=== PATIENT | female | born 1945 | race Caucasian/White ===

== ENCOUNTER 2019-02-09 06:03 | Inpatient (IN) ==
[2019-02-03 14:53] LABS: Appearance,Urine CLEAR; Bacteria,Urine 0 /hpf (0); Bilirubin,Urine NEG (NEG); Color,Urine STRAW; Glucose,Urine (UA) NEGATIVE (NEG); Ketones,Urine NEG (NEG); Leukocyte Esterase,Urine NEG /uL (NEG); Nitrate,Urine NEG (NEG); Protein,Urine NEG (NEG); Specific Gravity,Urine 1.011 (1.000-1.035); Urine Blood 0.03 mg/dL (<0.03); Urine RBC 1 /hpf (0-1); Urine Squamous Epithelial Cell 0 /hpf (0-4); Urine WBC 1 /hpf (0-4); Urobilinogen,Urine NEG (NEG)
[2019-02-03 15:47] LABS: Blood Urea Nitrogen 17 mg/dl (8-23); Carbon Dioxide 23 mmol/L (22-30); Chloride 106 mmol/L (96-108); Glomerular Filtration Rate 63; Glucose 89 mg/dL (70-105)
[2019-02-03 15:58] LABS: INR 1.8 (0.9-1.1); Prothrombin Time 20.9 sec (11.9-14.5)
[2019-02-03 15:59] LABS: Basophils # (Auto) 0.1 K/mcL (0.0-0.3); Basophils % (Auto) 0.6 % (0.0-2.0); Eosinophils # (Auto) 0.2 K/mcL (0.0-0.7); Eosinophils % (Auto) 1.7 % (0.0-7.0); Granulocytes % (Auto) 66.8 % (38.0-78.0); Hemoglobin 12.3 g/dL (12.0-15.0); Lymphocytes # (Auto) 2.5 K/mcL (1.5-4.8); Lymphocytes % (Auto) 24.9 % (15.5-49.0); Mean Cell Volume 92.7 fL (80.0-100.0); Mean Corpuscular HGB Conc 32.3 g/dL (31.0-36.0); Mean Platelet Volume 8.9 fL (7.4-10.4); Monocytes # (Auto) 0.6 K/mcL (0.1-0.9); Platelet Count 239 K/mcL (140-440); Red Cell Distribution Width 14.6 % (11.5-14.5); WBC 10.1 K/mcL (4.5-11.0)
[~2019-02-09 06:03] MED LIST: 0.9 % SODIUM CHLORIDE 9 ML, KETOROLAC 30 MG, ROPIVACAINE HCL/PF 49.5 ML, EPINEPHrine 0.... IJ SCH; ACETAMINOPHEN 500 MG TABLET PO SCH; CELECOXIB 200 MG CAPSULE PO SCH; IPRATROPIUM/ALBUTEROL 3 ML AMPUL.NEB NEB PRN; PREGABALIN 75 MG CAPSULE PO SCH; SCOPOLAMINE 1 PATCH PATCH TOPICAL PRN; ceFAZolin 2 GM in DEXTROSE 5% IN WATER 50 ML IV SCH; oxyCODONE 10 MG TAB.ER.12H PO SCH
[2019-02-09 06:39] LABS: POC INR 1.1 (0.9-1.2)
[2019-02-09] MEDS ORDERED: GENTAMICIN SULFATE 800 MG/20 ML VIAL IR ONE (08:31)
[2019-02-09] MEDS ORDERED: PHENYLEPHRINE 10 MG/ML VIAL IV ONE (09:00)
[2019-02-09] MEDS ORDERED: FAMOTIDINE/PF 20 MG/2 ML VIAL IV ONE (09:00)
[2019-02-09] MEDS ORDERED: DEXAMETHASONE 10 MG/ML VIAL IV ONE (09:00)
[2019-02-09] MEDS ORDERED: GLYCOPYRROLATE 0.2 MG/ML VIAL IV ONE (09:00)
[2019-02-09] MEDS ORDERED: PROPOFOL 200 MG/20 ML VIAL IV ONE (09:00)
[2019-02-09] MEDS ORDERED: ONDANSETRON 4 MG/2 ML VIAL IV ONE (09:00)
[2019-02-09] MEDS ORDERED: LIDOCAINE HCL/PF 100 MG/5 ML SYRINGE IV ONE (09:00)
[2019-02-09] MEDS ORDERED: MIDAZOLAM 2 MG/2 ML VIAL IV ONE (09:00)
[2019-02-09] MEDS ORDERED: KETAMINE 100 MG/ML ML IV ONE (09:00)
[2019-02-09] MEDS ORDERED: ROPIVACAINE HCL/PF 20 ML VIAL IJ ONE (09:00)
[2019-02-09] MEDS ORDERED: TRANEXAMIC ACID 1,000 MG/10 ML VIAL IV ONE (09:00)
[2019-02-09] MEDS ORDERED: BENZOCAINE/MENTHOL 1 LOZENGE PO PRN ×2 (10:24→10:31)
[2019-02-09] MEDS ORDERED: NALOXONE HCL 0.4 MG/ML VIAL IV PRN (10:24)
[2019-02-09] MEDS ORDERED: ONDANSETRON 4 MG/2 ML VIAL IV PRN (10:24)
[2019-02-09] MEDS ORDERED: IPRATROPIUM/ALBUTEROL 3 ML AMPUL.NEB NEB PRN (10:24)
[2019-02-09] MEDS ORDERED: KETOROLAC 15 MG/ML VIAL IV PRN (10:24)
[2019-02-09] MEDS ORDERED: LACTATED RINGERS 250 ML IV PRN (10:24)
[2019-02-09] MEDS ORDERED: fentaNYL 100 MCG/2 ML VIAL IV PRN (10:24)
[2019-02-09] MEDS ORDERED: MEPERIDINE 25 MG/ML SYRINGE IV PRN (10:24)
[2019-02-09] MEDS ORDERED: METHOCARBAMOL 1,000 MG/10 ML VIAL IV PRN (10:24)
[2019-02-09] MEDS ORDERED: LACTATED RINGERS 1,000 ML IV SCH (10:30)
[2019-02-09] MEDS ORDERED: POLYETHYLENE GLYCOL 3350 17 GM PACKET PO PRN (10:31)
[2019-02-09] MEDS ORDERED: HYDROmorphone 2 MG/ML VIAL IV PRN (10:31)
[2019-02-09] MEDS ORDERED: BISACODYL 10 MG SUPP.RECT PR PRN (10:31)
[2019-02-09] MEDS ORDERED: MAGNESIUM HYDROXIDE 30 ML ORAL.SUSP PO PRN (10:31)
[2019-02-09] MEDS ORDERED: FLEETS ADULT ENEMA PR PRN (10:31)
[2019-02-09] MEDS ORDERED: TRANEXAMIC ACID 1,000 MG/10 ML VIAL IV SCH (10:31)
[2019-02-09] MEDS ORDERED: ACETAMINOPHEN 325 MG TABLET PO PRN (10:31)
--- NOTE | 2019-02-09 10:31 | Brief Operative Note ---
Date of procedure: 02/09/19 Pre-op diagnosis: Left knee djd severe Post-op diagnosis: same Procedure: left robotic tka Grafts/Implants: Yes Anesthesia: MOOK Surgeon: Darin Webster Aperture Mask Etcher: Gregorio Lacy Estimated blood loss (cc): 50 Tourniquet Time (Minutes): 50 Specimens Removed/Pathology: none sent Condition: stable Disposition: PACU
--- NOTE | 2019-02-09 10:54 | Operative Note ---
DATE OF OPERATION: 02/09/2019 PREOPERATIVE DIAGNOSIS: Left knee degenerative arthritis, severe. POSTOPERATIVE DIAGNOSIS: Left knee degenerative arthritis, severe. PROCEDURE: Left total knee arthroplasty using the Bradley robot. SURGEON: Darin Webster M.D. IMPLEMENTATION PROJECT COORDINATOR: Gregorio Lacy PA-C. The PA's assistance was required for the safe and efficient completion of the entire case. This provider's expertise and technical skill were required throughout the case. The PA assisted with preoperative coordination, intraoperative retraction, wound closure, dressing and splint application, as well as postoperative documentation and care coordination. ANESTHESIA: General LMA anesthesia. COMPLICATIONS: None. TOTAL TOURNIQUET TIME: Approximately 45-50 minutes. BLOOD LOSS: 50 mL. DESCRIPTION OF PROCEDURE: The patient was brought to the operating room and put to sleep with general LMA anesthesia. Once asleep, the patient had the left leg sterilely prepped and draped in the usual sterile fashion. Timeout was performed to confirm the operative site. Once done, we then made a midline incision, midvastus approach performed showing severe arthritis throughout the joint. With this, we placed two pins below and two pins above the knee with one pin intraarticular and were all registered. Both center of hip rotation pins were registered, thirty points on the femur, thirty points on the tibia, and then it was balanced according to the robot and tension on the ligaments. We irrigated thoroughly and then brought in the robot. The robot made the bony cuts. We removed osteophytes as well. Posterior osteophytes were removed. The implants were trialed. They fit very nicely. We then implanted the size 3 femur and size 3 tibial baseplate with a 9 mm poly deep dish. The patella was resurfaced. It measured 22 mm. This was cut to 13 mm thickness and then resurfaced with a 31 mm patellar button. A small lateral chamfer was created. We then cemented into place the above-mentioned sizes. Excess cement was removed and then kept the knee at 45 degrees until the cement was dry. We irrigated thoroughly and dropped the tourniquet to control any bleeding. We then closed the midvastus approach with #1 Stratafix. Skin was closed with Stratafix and adhesive closure. RBH:alyssa Job ID: [id number] Doc ID: [id number] Darin Webster MD
[2019-02-09] MEDS ORDERED: ASPIRIN 325 MG ENTERIC COATED TABLET PO SCH (12:00)
[2019-02-09] MEDS: ONDANSETRON 4 MG/2 ML VIAL IV PRN ×2 (12:00→16:42)
--- NOTE | 2019-02-09 12:08 | XRay Report ---
CLINICAL INFORMATION: Post-Op Total Knee COMPARISON: None. FINDINGS: Total knee prostheses is anatomically aligned. No osseous abnormality. Gas and soft tissue swelling seen as expected IMPRESSION: Negative Interpreted and Authenticated by: Miguel Padron 02/09/19
[2019-02-09] MEDS: KETOROLAC 15 MG/ML VIAL IV SCH ×3 (14:17→23:39)
[2019-02-09] MEDS ORDERED: ASPIRIN 325 MG ENTERIC COATED TABLET PO ONE (14:23)
[2019-02-09] MEDS: LACTATED RINGERS 1,000 ML IV SCH ×2 (14:53→23:57)
[2019-02-09] MEDS: 0.9 % SODIUM CHLORIDE 10 ML SYRINGE IV SCH ×2 (15:44→23:38)
[2019-02-09] MEDS: FERROUS SULFATE 325 MG TABLET PO SCH (16:43)
[2019-02-09] MEDS ORDERED: PROMETHAZINE 25 MG/ML VIAL IV PRN (17:58)
[2019-02-09] MEDS ORDERED: METOCLOPRAMIDE 10 MG/2 ML VIAL IV PRN (17:59)
[2019-02-09] MEDS: DOCUSATE SODIUM 100 MG CAPSULE PO SCH (20:32)
[2019-02-09] MEDS: DILTIAZEM 180 MG CAP.XL.24H PO SCH (20:32)
[2019-02-09] MEDS ORDERED: WARFARIN 5 MG TABLET PO SCH (21:00)
[2019-02-09] MEDS ORDERED: TEMAZEPAM 15 MG CAPSULE PO PRN (21:00)
[2019-02-09] MEDS ORDERED: ATORVASTATIN 20 MG TABLET PO SCH (21:00)
[2019-02-09] MEDS ORDERED: SENNOSIDES 1 TABLET PO SCH (21:00)
[2019-02-10] MEDS: oxyCODONE/APAP 5/325MG TABLET PO PRN ×3 (03:30→12:42)
[2019-02-10] MEDS: KETOROLAC 15 MG/ML VIAL IV SCH ×2 (05:39→12:44)
[2019-02-10] MEDS: 0.9 % SODIUM CHLORIDE 10 ML SYRINGE IV SCH (05:40)
[2019-02-10 06:28] LABS: INR 1.2 (0.9-1.1); Prothrombin Time 14.9 sec (11.9-14.5)
[2019-02-10] MEDS ORDERED: LEVOTHYROXINE 75 MCG TABLET PO SCH (07:30)
--- NOTE | 2019-02-10 07:34 | Orthopedic Progress Note ---
Subjective Patient information: Note initiated : 02/10/19 at 7:33 am Service Date, if different from initiated Date: [] Patient: Queenie Hampton 73 y/o F admitted on 02/09/19 for Left Total Knee Arthroplasty Bradley . Chief Complaint: [Pt is stable this morning on post operative day 1 without any significant concerns or complaints. Patients vital signs have remained stable. Patients dressing is dry and is grossly intact from a neurovascular and motor standpoint. Patients 10 point ROS is otherwise negative. ] Objective Vital signs: Vital Signs Temp Pulse Resp BP BP Pulse Ox 02/10/19 03:29 98.5 F 76 16 135/70 94 02/09/19 23:41 97.4 F 64 16 124/66 95 02/09/19 20:13 97.3 F 69 16 126/70 96 02/09/19 18:00 94 02/09/19 16:00 97.3 F 81 18 135/79 95 02/09/19 14:31 95 02/09/19 14:30 98.2 F 53 L 18 121/70 94 02/09/19 13:15 51 L 18 130/70 96 02/09/19 12:45 63 18 122/71 97 02/09/19 12:15 58 L 16 122/71 92 02/09/19 12:00 70 16 128/70 92 02/09/19 11:45 102 H 16 157/93 96 02/09/19 11:30 97.7 F 70 16 119/66 97 02/09/19 11:22 97.7 F 67 14 117/64 96 02/09/19 11:10 97.7 F 72 14 110/60 96 02/09/19 10:55 97.0 F 77 15 122/60 97 02/09/19 10:50 84 17 122/56 100 02/09/19 10:45 68 14 105/58 99 02/09/19 10:40 97.2 F 75 14 124/58 94 Intake and Output 02/09/19 02/10/19 02/10/19 21:59 05:59 13:59 Intake Total 720 1232 Output Total 575 1600 Balance 145 -368 Intake: IV 907 Lactated Ringers 1,000 ml @ 100 907 mls/hr IV .Q10H [facility] Rx#: [id number] Oral 720 325 Output: Void Amount 375 1600 Emesis 200 Other: Meal Dinner Percent of Meal Consumed 0% Feeding Ability Independent Urine Appearance Clear Urine Color Bright Yellow Urine Odor Strong # Voids 1 Weight 220 lb Intake & Output: Intake & Output 02/09/19 02/10/19 02/10/19 21:59 05:59 13:59 Intake Total 720 1232 Output Total 575 1600 Balance 145 -368 Weight 220 lb Intake: IV 907 Lactated Ringers 1,000 ml @ 100 907 mls/hr IV .Q10H [facility] Rx#: [id number] Oral 720 325 Output: Void Amount 375 1600 Emesis 200 Other: Meal Dinner Percent of Meal Consumed 0% Feeding Ability Independent Urine Appearance Clear Urine Color Bright Yellow Urine Odor Strong # Voids 1 Incision: Yes healing Incision clean and dry: Yes Dressing: Yes clean Weight bearing status: full Neurological exam IM: Yes motor sensory intact, Yes neurovascular intact Extremities exam IM: Yes Foot pink and warm, Yes neurovascular intact - Labs CBC & BMP: 02/10/19 04:35 02/03/19 13:26 Labs: Orthopedic Labs 02/10/19 02/09/19 02/03/19 04:35 06:21 13:26 POC PT 13.0 PT 14.9 H 20.9 H POC INR 1.1 INR 1.2 H 1.8 H APTT 30 02/10/19 02/03/19 04:35 13:26 Hgb 12.3 Hct 33.3 L 38.0 Assessment and Plan (1) Hx of total knee arthroplasty The patient has been educated regarding dressing care, Physical Therapy recom mendations, home exercises, restrictions, and follow up appointments. The patient has had all necessary DME prescribed. The patient has remained relatively stable during their hospital course. Status: Acute
--- NOTE | 2019-02-10 07:36 | Discharge Summary ---
Ortho Discharge - TKA - Patient Instructions Diet: Regular Diet Activity: activity as tolerated, weight bearing as tolerated Total Knee Protocol: For Total Knee: Start ROM TAVARES with stationary bike or rocking chair. Work on gaining full extension of knee. Posterior dislocation precautions provided. Hip abductor strengthening and gait training instructions provided. Apply Cryocuff as instructed. Dressing Care: May shower in 2 days, Aquacel Ag - leave on for 5 days - Problem Maintenance (1) Hx of total knee arthroplasty Status: Acute - Follow Up Plan Follow Up Appointments: Gregorio Lacy PA-C [Physician Radio Commentator] - 02/24/19 10:50 am Disposition: Home, Self-Care Prognosis: Good Rehab Potential: Good I certify that the patient requires SNF services: No Overall status at discharge: patient is progressing back to baseline - Orders For Discharge Prescriptions: Docusate Sodium [Colace] 100 mg PO BID #60 cap Transmission Status: Pending to [facility] #[id number] oxyCODONE/APAP [Percocet 5-325 mg] 1 - 2 tab PO Q4HP PRN #75 tab PRN Reason: Pain Level 3-6 Prescription Printed
[2019-02-10] MEDS: FERROUS SULFATE 325 MG TABLET PO SCH (07:48)
[2019-02-10] MEDS ORDERED: MAGNESIUM OXIDE 400 MG TABLET PO SCH (09:00)
[2019-02-10] MEDS ORDERED: VITAMIN D3 1,000 UNIT TABLET PO SCH (09:00)
[2019-02-10] MEDS ORDERED: CALCIUM (OYSTER SHELL) 500 MG TABLET PO SCH (09:00)
[2019-02-10] MEDS: DILTIAZEM 180 MG CAP.XL.24H PO SCH (09:26)
[2019-02-10] MEDS: DOCUSATE SODIUM 100 MG CAPSULE PO SCH (09:34)
[2019-02-10] MEDS: LACTATED RINGERS 1,000 ML IV SCH (15:23)
[2019-02-10] MEDS ORDERED: WARFARIN 5 MG TABLET PO SCH (16:00)
== END 2019-02-10 14:55 | disposition home or self-care (01) | DRG 470 ==
LOC: MEDSUR 06:03
PROVIDERS: ADMIT Orthopaedic Surgery; ATTEND Orthopaedic Surgery

== ENCOUNTER 2019-08-24 05:05 | Inpatient (IN) ==
[~2019-08-24 05:05] MED LIST changes: -0.9 % SODIUM CHLORIDE 9 ML, KETOROLAC 30 MG, ROPIVACAINE HCL/PF 49.5 ML, EPINEPHrine 0.... IJ SCH; -ACETAMINOPHEN 500 MG TABLET PO SCH; -CELECOXIB 200 MG CAPSULE PO SCH; -PREGABALIN 75 MG CAPSULE PO SCH; -ceFAZolin 2 GM in DEXTROSE 5% IN WATER 50 ML IV SCH; -oxyCODONE 10 MG TAB.ER.12H PO SCH
[2019-08-24] MEDS ORDERED: CELECOXIB 200 MG CAPSULE PO SCH (06:00)
[2019-08-24] MEDS ORDERED: PREGABALIN 75 MG CAPSULE PO SCH (06:00)
[2019-08-24] MEDS ORDERED: oxyCODONE 10 MG TAB.ER.12H PO SCH (06:00)
[2019-08-24] MEDS ORDERED: ACETAMINOPHEN 500 MG TABLET PO SCH (06:00)
[2019-08-24] MEDS: ceFAZolin 2 GM in DEXTROSE 5% IN WATER 50 ML IV SCH ×2 (07:22→15:44)
[2019-08-24] MEDS ORDERED: fentaNYL 100 MCG/2 ML VIAL IV ONE (07:45)
[2019-08-24] MEDS ORDERED: HYDROmorphone 2 MG/ML VIAL IV ONE (07:45)
[2019-08-24] MEDS ORDERED: ONDANSETRON 4 MG/2 ML VIAL IV ONE (07:45)
[2019-08-24] MEDS ORDERED: PROPOFOL 200 MG/20 ML VIAL IV ONE (07:45)
[2019-08-24] MEDS ORDERED: KETAMINE 100 MG/ML ML IV ONE (07:45)
[2019-08-24] MEDS ORDERED: LIDOCAINE HCL/PF 100 MG/5 ML SYRINGE IV ONE (07:45)
[2019-08-24] MEDS ORDERED: GLYCOPYRROLATE 0.2 MG/ML VIAL IV ONE (07:45)
[2019-08-24] MEDS ORDERED: ROPIVACAINE HCL/PF 20 ML VIAL IJ ONE (07:45)
[2019-08-24] MEDS ORDERED: PHENYLEPHRINE 10 MG/ML VIAL IV ONE (07:45)
[2019-08-24] MEDS ORDERED: DEXAMETHASONE 10 MG/ML VIAL IV ONE (07:45)
[2019-08-24] MEDS ORDERED: TRANEXAMIC ACID 1,000 MG/10 ML VIAL IV ONE (07:45)
[2019-08-24] MEDS ORDERED: GENTAMICIN SULFATE 800 MG/20 ML VIAL IR ONE (08:14)
[2019-08-24] MEDS ORDERED: PROMETHAZINE 25 MG/ML VIAL IV PRN (08:26)
[2019-08-24] MEDS ORDERED: MEPERIDINE 25 MG/ML SYRINGE IV PRN (08:26)
[2019-08-24] MEDS ORDERED: IPRATROPIUM/ALBUTEROL 3 ML AMPUL.NEB NEB PRN (08:26)
[2019-08-24] MEDS ORDERED: fentaNYL 100 MCG/2 ML VIAL IV PRN (08:26)
[2019-08-24] MEDS ORDERED: BENZOCAINE/MENTHOL 1 LOZENGE PO PRN (08:26)
[2019-08-24] MEDS ORDERED: NALOXONE HCL 0.4 MG/ML VIAL IV PRN (08:26)
[2019-08-24] MEDS ORDERED: LACTATED RINGERS 250 ML IV PRN (08:26)
[2019-08-24] MEDS ORDERED: FLUMAZENIL 0.1 MG/ML ML IV PRN (08:26)
[2019-08-24] MEDS ORDERED: METOPROLOL TARTRATE 5 MG/5 ML VIAL IV PRN (08:26)
[2019-08-24] MEDS ORDERED: LABETALOL 5 MG/ML ML IV PRN (08:26)
[2019-08-24] MEDS ORDERED: METHOCARBAMOL 1,000 MG/10 ML VIAL IV PRN (08:26)
[2019-08-24] MEDS ORDERED: LACTATED RINGERS 1,000 ML IV SCH (08:30)
--- NOTE | 2019-08-24 09:33 | Brief Operative Note ---
Date of procedure: 08/24/19 Pre-op diagnosis: Left humerus 4 part fx with avulsion greater tuberosity Post-op diagnosis: same Procedure: Left reverse tsa with hardware removal and bicep tenodesis Grafts/Implants: Yes Anesthesia: GETA Complications: none Surgeon: Darin Webster Branch Specialist: Gregorio Lacy Estimated blood loss (cc): 50 Specimens Removed/Pathology: none sent Condition: stable Disposition: PACU
[2019-08-24] MEDS ORDERED: TRANEXAMIC ACID 1,000 MG/10 ML VIAL IV SCH (09:34)
[2019-08-24] MEDS ORDERED: POLYETHYLENE GLYCOL 3350 17 GM PACKET PO PRN ×2 (09:34→09:44)
[2019-08-24] MEDS ORDERED: HYDROmorphone 2 MG/ML VIAL IV PRN (09:34)
[2019-08-24] MEDS ORDERED: KETOROLAC 15 MG/ML VIAL IV PRN (09:34)
[2019-08-24] MEDS ORDERED: FLEETS ADULT ENEMA PR PRN (09:34)
[2019-08-24] MEDS ORDERED: BISACODYL 10 MG SUPP.RECT PR PRN (09:34)
[2019-08-24] MEDS ORDERED: MAGNESIUM HYDROXIDE 30 ML ORAL.SUSP PO PRN (09:34)
[2019-08-24] MEDS ORDERED: ACETAMINOPHEN 325 MG TABLET PO PRN (09:34)
[2019-08-24] MEDS ORDERED: ONDANSETRON 4 MG/2 ML VIAL IV PRN (09:34)
[2019-08-24] MEDS ORDERED: WARFARIN 5 MG TABLET PO SCH (09:45)
--- NOTE | 2019-08-24 10:11 | Operative Note ---
DATE OF OPERATION: 08/24/2019 PREOPERATIVE DIAGNOSES: Left four-part humerus fracture with hardware and failure to heal the greater tuberosity. POSTOPERATIVE DIAGNOSES: Left four-part humerus fracture with hardware and failure to heal the greater tuberosity. PROCEDURE: Hardware removal, reverse total shoulder with Helen components, biceps tenodesis and lysis, repair of the greater tuberosity or rotator cuff of infraspinatus and teres minor to the fractured fragments. SURGEON: Darin Webster M.D. LPN: Gregorio Lacy PA-C. The PA's assistance was required for the safe and efficient completion of the entire case. This provider's expertise and technical skill were required throughout the case. The PA assisted with preoperative coordination, intraoperative retraction, wound closure, dressing and splint application, as well as postoperative documentation and care coordination. ANESTHESIA: General LMA anesthesia. COMPLICATIONS: None. ESTIMATED BLOOD LOSS: Approximately 150 mL. DESCRIPTION OF PROCEDURE: The patient was brought to the operating room and put to sleep with general LMA anesthesia. Once asleep, the patient had the left shoulder sterilely prepped and draped in the usual sterile fashion. Incision through her prior scar was made. We elevated the deltoid and the deltopectoral interval, retracting this laterally. The plate was removed by removing all the screws. There were sutures still attached to the bony fragment and the greater tuberosity to the plate. Quite a bit of deformity of the humeral head with retroversion, though there was a significant amount of healing of these bony fragments that had reconstituted the fragments. At this point, we then released what was the remnants of the lesser and subscap. I was then able to sublux the head or dislocate this. We then made our humeral cut of the remnants of the bony fragments. I was able to then sublux the head posteriorly, performed a 360-degree capsular release, as well as the remnants of the biceps tendon. We placed a pin centrally. We reamed this and then placed the metaglene and a central screw. Three screws were put into place and then we placed a 36 mm head with 2 offset, 2 eccentricity. We then prepared the humeral side which was broached up to a size 10 stem. This size stem seemed to fit well with a neutral poly liner. This was trialed. We then positioned the implant and tapped it into place with a neutral implant. This was reduced. Excess cement was removed. Repaired the biceps to the pectoralis major with FiberWire. I used FiberWire to repair the infraspinatus and what was left of the teres minor to the bony fragments posteriorly through drill holes. A good repair was achieved. We irrigated thoroughly and then repaired the deltopectoral interval with 2-0 Vicryl. The skin was closed with 2-0 Vicryl and aide. The patient tolerated this well without complication. RBH:alyssa Job ID: [id number] Doc ID: [id number] Darin Webster MD
--- NOTE | 2019-08-24 11:33 | XRay Report ---
CLINICAL INFORMATION: Post-Op Total Shoulder COMPARISON: None. FINDINGS: Left total shoulder prostheses is anatomically aligned no osseous abnormality. Soft tissue swelling seen as expected IMPRESSION: Negative Interpreted and Authenticated by: Miguel Padron 08/24/19
[2019-08-24] MEDS: NAPROXEN 250 MG TABLET PO PRN (12:24)
[2019-08-24] MEDS: LACTATED RINGERS 1,000 ML IV SCH ×2 (13:11→19:59)
[2019-08-24 13:53] LABS: POC INR 1.2 (0.9-1.2); POC Pro Time 14.2 sec (11.9-14.5)
[2019-08-24] MEDS: 0.9 % SODIUM CHLORIDE 10 ML SYRINGE IV SCH ×2 (14:52→22:00)
[2019-08-24] MEDS ORDERED: WARFARIN 5 MG TABLET PO ONE (15:00)
[2019-08-24] MEDS: oxyCODONE/APAP 5/325MG TABLET PO PRN ×2 (15:40→19:51)
[2019-08-24] MEDS: ceFAZolin 1 GM VIAL IV SCH ×2 (15:52→23:26)
[2019-08-24] MEDS: BENZOCAINE/MENTHOL 1 LOZENGE PO PRN (19:53)
[2019-08-24] MEDS: DILTIAZEM 180 MG CAP.XL.24H PO SCH (19:54)
[2019-08-24] MEDS: DOCUSATE SODIUM 100 MG CAPSULE PO SCH (19:54)
[2019-08-24] MEDS: CALCIUM (OYSTER SHELL) 500 MG TABLET PO SCH (19:54)
[2019-08-24] MEDS ORDERED: TEMAZEPAM 15 MG CAPSULE PO PRN (21:00)
[2019-08-24] MEDS ORDERED: ATORVASTATIN 20 MG TABLET PO SCH (21:00)
[2019-08-24] MEDS ORDERED: SENNOSIDES 1 TABLET PO SCH (21:00)
[2019-08-24] MEDS ORDERED: DOCUSATE SODIUM 100 MG CAPSULE PO SCH (21:00)
[2019-08-25] MEDS: oxyCODONE/APAP 5/325MG TABLET PO PRN (03:45)
[2019-08-25] MEDS: BENZOCAINE/MENTHOL 1 LOZENGE PO PRN (03:46)
[2019-08-25] MEDS: LACTATED RINGERS 1,000 ML IV SCH (04:57)
[2019-08-25] MEDS: 0.9 % SODIUM CHLORIDE 10 ML SYRINGE IV SCH (06:13)
[2019-08-25] MEDS: NAPROXEN 250 MG TABLET PO PRN (07:17)
[2019-08-25] MEDS ORDERED: LEVOTHYROXINE 75 MCG TABLET PO SCH (07:30)
--- NOTE | 2019-08-25 07:34 | Orthopedic Progress Note ---
Subjective Patient information: Note initiated : 08/25/19 at 7:33 am Service Date, if different from initiated Date: [] Patient: Queenie Hampton 73 y/o F admitted on 08/24/19 for Left Reverse Total Shoulder Arthroplasty with. Chief Complaint: [Pt is stable this morning on post operative day 1 without any significant concerns or complaints. Patients vital signs have remained stable. Patients dressing is dry and is grossly intact from a neurovascular and motor standpoint. Patients 10 point ROS is otherwise negative. ] Objective Vital signs: Vital Signs Temp Pulse Pulse Resp BP Pulse Ox 08/25/19 03:30 98.3 F 99 H 14 129/86 96 08/25/19 02:00 78 08/24/19 22:58 98.0 F 78 12 128/66 95 08/24/19 20:00 18 08/24/19 18:45 97.7 F 91 H 14 143/78 93 08/24/19 16:00 97.7 F 90 20 129/65 95 08/24/19 13:50 97.4 F 67 18 135/87 98 08/24/19 13:20 66 18 123/87 98 08/24/19 12:45 77 16 132/80 98 08/24/19 12:15 83 16 137/93 99 08/24/19 12:00 68 16 110/76 96 08/24/19 11:45 72 16 128/85 96 08/24/19 11:30 97.2 F 77 16 136/91 95 08/24/19 11:00 96 08/24/19 10:45 97.4 F 87 16 155/72 98 08/24/19 10:30 97.9 F 79 10 L 142/65 91 08/24/19 10:15 97.6 F 83 10 L 144/71 93 08/24/19 10:10 88 12 109/76 97 08/24/19 10:05 84 85 16 126/84 97 08/24/19 10:00 97.4 F 85 14 115/77 98 Intake and Output 08/24/19 08/25/19 08/25/19 21:59 05:59 13:59 Intake Total 490 1250 Output Total 450 1700 Balance 40 -450 Intake: Oral 490 1250 Output: Void Amount 450 1700 Other: Meal Dinner Percent of Meal Consumed 50% Feeding Ability Independent Urine Appearance Clear Clear Urine Color Straw Pale Urine Odor Normal Weight 215 lb 4.8 oz Intake & Output: Intake & Output 08/24/19 08/25/19 08/25/19 21:59 05:59 13:59 Intake Total 490 1250 Output Total 450 1700 Balance 40 -450 Weight 215 lb 4.8 oz Intake: Oral 490 1250 Output: Void Amount 450 1700 Other: Meal Dinner Percent of Meal Consumed 50% Feeding Ability Independent Urine Appearance Clear Clear Urine Color Straw Pale Urine Odor Normal Incision: Yes healing Incision clean and dry: Yes Dressing: Yes clean Weight bearing status: full Neurological exam IM: Yes motor sensory intact, Yes neurovascular intact Extremities exam IM: Yes neurovascular intact - Labs Labs: Orthopedic Labs 08/24/19 10:00 POC PT 14.2 POC INR 1.2 Assessment and Plan (1) History of reverse total replacement of left shoulder joint The patient has been educated regarding dressing care, Physical Therapy recommendations, home exercises, restrictions, and follow up appointments. The patient has had all necessary DME prescribed. The patient has remained relatively stable during their hospital course. Status: Acute
--- NOTE | 2019-08-25 07:37 | Discharge Summary ---
Ortho Discharge - TSA - Patient Instructions Diet: Regular Diet Activity: activity as tolerated, weight bearing as tolerated Total Shoulder Protocol: Leave immobilizer in place except for bathing and ROM. Abduction pillow. Continue to wear sling until seen by physician. Codman Pendulum : These exercises use momentum produced by your body to move your shoulder joint. Bend your knees and shift your weight to your front leg, then back, allowing your arm to swing in the same directions. Using the same technique, alternately shift your weight between your right and left legs, allowing your arm to swing from side to side. These exercises are also performed in counterclockwise and clockwise circular motions. Typically these exercises are performed several times per day, for a set number repetitions or minutes, such as 20 times in a row or 5 minutes at a time. Dressing Care: May shower in 2 days - Problem Maintenance (1) History of reverse total replacement of left shoulder joint Status: Acute - Follow Up Plan Follow Up Appointments: Gregorio Lacy PA-C [Physician Shear Operator] - 09/08/19 10:00 am Disposition: Home, Self-Care Prognosis: Good Rehab Potential: Good I certify that the patient requires SNF services: No Overall status at discharge: patient is progressing back to baseline - Orders For Discharge Prescriptions: Docusate Sodium [Colace] 100 mg PO BID #60 cap Transmission Status: Pending to [facility] #[id number] HYDROcodone/APAP 10/325MG [Nitro 10-325Mg] 1 - 2 tab PO Q4H PRN #75 tab PRN Reason: Pain Prescription Printed
[2019-08-25] MEDS: CALCIUM (OYSTER SHELL) 500 MG TABLET PO SCH (08:56)
[2019-08-25] MEDS: DILTIAZEM 180 MG CAP.XL.24H PO SCH (08:56)
[2019-08-25] MEDS: DOCUSATE SODIUM 100 MG CAPSULE PO SCH (08:57)
[2019-08-25] MEDS ORDERED: VITAMIN D3 1,000 UNIT TABLET PO SCH (09:00)
[2019-08-25] MEDS ORDERED: MAGNESIUM OXIDE 400 MG TABLET PO SCH (09:00)
[2019-08-25] MEDS ORDERED: WARFARIN 5 MG TABLET PO SCH (09:44)
== END 2019-08-25 10:25 | disposition home or self-care (01) | DRG 483 ==
LOC: MEDSUR 05:05
PROVIDERS: ADMIT Orthopaedic Surgery; ATTEND Orthopaedic Surgery